=== PATIENT | female | born 1980 | race Two or more races ===

== ENCOUNTER 2023-06-24 09:06 | Inpatient (IN) | payer OTHER ==
[~2023-06-24] VITALS: Ht 152.4 cm; Wt 65.8 kg
[2023-06-24 10:28] LABS: MEAN CORPUSCULAR HGB CONC 27.5 g/dl (32.0-36.0); RED BLOOD COUNT 3.39 M/uL (4.00-6.00)
[2023-06-24 10:29] LABS: URINE APPEARANCE Cloudy; URINE BILIRRUBIN Negative (NEGATIVE); URINE BLOOD Large; URINE COLOR Orange; URINE GLUCOSE Negative (NEGATIVE); URINE LEUKOCYTE Small; URINE NITRATE Positive
[2023-06-24 10:30] LABS: URINE EPITHELIAL CELLS 14.2 uL (0.0-38.8); URINE WBC 133.8 uL (0.0-23.2)
[2023-06-24 10:32] LABS: URINE BACTERIA > 9821.5 uL (0.0-1933); URINE PROTEIN 100 (NEGATIVE); URINE RBC > 10558.9 uL (0.0-20.8)
[2023-06-24 10:55] LABS: CALCIUM 8.7 mg/dL (8.5-10.1); CREATININE SERUM 0.55 mg/dL (0.55-1.02); GFR 120.63; POTASSIUM 4.1 mEq/L (3.5-5.1)
[2023-06-24 11:03] LABS: MEAN CELL VOLUME 55.5 fL (80.00-100.00); MEAN CORPUSCULAR HEMOGLOBIN 15.3 pg (27.00-32.0)
[2023-06-24 11:04] LABS: HEMATOCRIT 18.8 % (36.0-45.00); HEMOGLOBIN 5.2 g/dL (12.0-15.00)
[2023-06-24 11:05] LABS: PLATELET COUNT 135 K/uL (150-450)
[2023-06-24 11:09] LABS: RED CELL DISTRIBUTION WIDTH 23.9 % (11.5-14.5)
[2023-06-25 11:36] LABS: HEMATOCRIT 29.4 % (36.0-45.00); MEAN CORPUSCULAR HGB CONC 31.9 g/dl (32.0-36.0)
[2023-06-25 11:59] LABS: TSH 0.635 uIU/mL (0.358-3.74)
[2023-06-25 12:12] LABS: HEMOGLOBIN 9.4 g/dL (12.0-15.00)
[2023-06-25 12:14] LABS: MEAN CELL VOLUME 65.3 fL (80.00-100.00); MEAN CORPUSCULAR HEMOGLOBIN 20.8 pg (27.00-32.0)
[2023-06-25 12:15] LABS: RED CELL DISTRIBUTION WIDTH 34.2 % (11.5-14.5)
[2023-06-25 12:16] LABS: PLATELET COUNT 131 K/uL (150-450)
[2023-06-25 13:06] LABS: PLATELET ESTIMATE NORMAL (NORMAL)
[2023-06-25] MEDS ORDERED: FUSION PLUS CA1 EACH PO (19:58)
[2023-06-25] MEDS ORDERED: B COMPLEX1 EACH PO (20:03)
== END 2023-06-25 20:23 | disposition home or self-care (01) | DRG 812 ==
LOC: ER 09:06 → MEDI 15:59
PROVIDERS: Emergency Medicine; ADMIT Internal Medicine Cardiovascular Disease; ATTEND Internal Medicine Cardiovascular Disease
PROC: 30233N1 Transfusion of Nonautologous Red Blood Cells into Peripheral Vein, Percutaneous Approach (ICD-10-PCS; principal; 2023-06-24)
PROC: BW4GZZZ Ultrasonography of Pelvic Region (ICD-10-PCS; 2023-06-24)
DX: D50.0 Iron deficiency anemia secondary to blood loss (chronic) (principal); Z20.822 Contact with and (suspected) exposure to COVID-19

== ENCOUNTER 2023-07-20 01:09 | Emergency (ER) | payer OTHER ==
[~2023-07-20] VITALS: Ht 157.5 cm; Wt 72.6 kg
[~2023-07-20 01:09] MED LIST: B COMPLEX1 EACH PO; FUSION PLUS CA1 EACH PO
[2023-07-20 06:11] LABS: HEMATOCRIT 26.3 % (36.0-45.00); MEAN CELL VOLUME 77.9 fL (80.00-100.00); MEAN CORPUSCULAR HGB CONC 33.2 g/dl (32.0-36.0); RED BLOOD COUNT 3.38 M/uL (4.00-6.00)
[2023-07-20 07:41] LABS: MEAN CORPUSCULAR HEMOGLOBIN 25.7 pg (27.00-32.0); RED CELL DISTRIBUTION WIDTH 34.3 % (11.5-14.5)
[2023-07-20 07:42] LABS: HEMOGLOBIN 8.7 g/dL (12.0-15.00); PLATELET COUNT 166 K/uL (150-450)
== END 2023-07-20 09:02 | disposition home or self-care (01) ==
LOC: ER 01:10
DX: D64.9 Anemia, unspecified (principal); D25.9 Leiomyoma of uterus, unspecified

== ENCOUNTER 2023-09-24 10:45 | Inpatient (IN) | payer OTHER ==
[~2023-09-24] VITALS: Ht 154.9 cm; Wt 72.6 kg
[2023-09-30 15:29] LABS: HEMATOCRIT 32.3 % (36.0-45.00); HEMOGLOBIN 10.7 g/dL (12.0-15.00); MEAN CELL VOLUME 89.7 fL (80.00-100.00); MEAN CORPUSCULAR HEMOGLOBIN 29.8 pg (27.00-32.0); MEAN CORPUSCULAR HGB CONC 33.3 g/dl (32.0-36.0); PLATELET COUNT 231 K/uL (150-450); RED CELL DISTRIBUTION WIDTH 14.2 % (11.5-14.5)
[2023-10-02 07:47] LABS: HEMATOCRIT 27.5 % (36.0-45.00); HEMOGLOBIN 9.3 g/dL (12.0-15.00); MEAN CELL VOLUME 89.2 fL (80.00-100.00); MEAN CORPUSCULAR HEMOGLOBIN 30.1 pg (27.00-32.0); MEAN CORPUSCULAR HGB CONC 33.7 g/dl (32.0-36.0); PLATELET COUNT 170 K/uL (150-450); RED BLOOD COUNT 3.09 M/uL (4.00-6.00); RED CELL DISTRIBUTION WIDTH 14.6 % (11.5-14.5)
[2023-10-02] MEDS ORDERED: COLACE100 MG PO (10:45)
[2023-10-02] MEDS ORDERED: TRAM1TAB98 PO (10:46)
[2023-10-02] MEDS ORDERED: KETO10TA2 PO (10:47)
[2023-10-02] MEDS ORDERED: TANDEM DUAL AC106 MG PO (10:48)
== END 2023-10-02 13:28 | disposition home or self-care (01) | DRG 743 ==
LOC: O/R 09-30 05:18 → OB/GYN 09-30 05:18 → O/R 09-30 13:17 → OB/GYN 09-30 13:23
PROVIDERS: ADMIT Obstetrics & Gynecology; ATTEND Obstetrics & Gynecology
PROC: 0USG7ZZ Reposition Vagina, Via Natural or Artificial Opening (ICD-10-PCS; 2023-09-30)
PROC: 0UT90ZZ Resection of Uterus, Open Approach (ICD-10-PCS; principal; 2023-09-30 09:15)
DX: D25.1 Intramural leiomyoma of uterus (principal); D25.2 Subserosal leiomyoma of uterus; N80.03 Adenomyosis of the uterus; Z20.822 Contact with and (suspected) exposure to COVID-19; N73.6 Female pelvic peritoneal adhesions (postinfective)